=== PATIENT | female | born 1960 | race Caucasian/White ===

== ENCOUNTER 2023-11-13 17:08 | Emergency (ER) | payer OTHER, SELFPAY ==
[2023-11-13 17:20] VITALS: BP 137/81; PULSE 63; RESP 20; TEMP 36.6; O2SAT 97; BMI 35.6
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
--- NOTE | 2023-11-13 17:33 | DI.RAD.S_ITS ---
PROCEDURE: XR LUMBAR SPINE MIN 4V INDICATIONS: Pain TECHNIQUE: 5 views of the lumbar spine were acquired, including bilateral oblique views. COMPARISON: [facility], CR, XR THORACIC SPINE 3V, 11/13/2023, 17:41. FINDINGS: Bones: There is an L2 compression deformity seen involving the superior endplate, with 25% loss of height centrally. No posterior displacement of fracture fragments can be seen on this study. 5 nonrib-bearing vertebrae are present. There is grade 1 L4-L5 anterolisthesis. No associated pars defects are seen. No suspicious bony lesions. There is moderate disc space narrowing seen at L4-L5. The disc heights otherwise appear well-preserved. Lower lumbar spine facet arthropathy is seen. Soft tissues: Overlying bowel gas pattern is normal. No suspicious soft tissue calcifications. Cholecystectomy clips are seen. Left-sided pelvic clips are also seen. Oblique images: No pars defects. IMPRESSION: There is an L2 compression deformity seen with 25% loss of height centrally. This is potentially acute. If it would be helpful for clinical management decision making in this patient with this given history, please consider a dedicated lumbar CT for further evaluation. Grade 1 L4-L5 anterolisthesis seen, with associated focal degenerative change. Dictated by: Benitez Irving M.D. on 11/13/2023 at 17:41 Approved by: Benitez Irving M.D. on 11/13/2023 at 17:43
--- NOTE | 2023-11-13 17:40 | DI.RAD.S_ITS ---
PROCEDURE: XR THORACIC SPINE 3V INDICATIONS: Lower thoracic back pain TECHNIQUE: 3 views of the thoracic spine were acquired. COMPARISON: [facility], CR, XR LUMBAR SPINE MIN 4V, 11/13/2023, 17:41. FINDINGS: Bones: No fractures or dislocations. No suspicious bony lesions. 12 pairs of ribs are noted, and appear intact where visualized. Age-appropriate bony degenerative changes are seen. Mild dextroconvex scoliotic curvature is seen. Mildly accentuated thoracic kyphosis can be seen. Soft tissues: No paravertebral stripe thickening. Cholecystectomy clips are seen. IMPRESSION: Thoracic spine plain films within normal limits for age. Dictated by: Benitez Irving M.D. on 11/13/2023 at 17:43 Approved by: Benitez Irving M.D. on 11/13/2023 at 17:44
[2023-11-13] MEDS: CYCLOBENZAPRINE 10 MG TABLET PO (17:50)
[2023-11-13] MEDS: KETOROLAC 30 MG/ML VIAL IM (17:50)
[2023-11-13] MEDS: HYDROCODONE/ACET 5/325 TABLET 1 TAB PO (19:05)
[2023-11-13 19:21] VITALS: BP 135/80; PULSE 60; RESP 18; O2SAT 98
== END 2023-11-13 19:22 | disposition home or self-care (01) ==
PROVIDERS: Emergency Provider Physician Assistant
DX: S32.020A Wedge compression fracture of second lumbar vertebra, initial encounter for closed fracture (principal); M54.50 Low back pain, unspecified; M54.6 Pain in thoracic spine; X58.XXXA Exposure to other specified factors, initial encounter
CPT/HCPCS: 72072; 72110; 96372; 99283; J1885

== ENCOUNTER → 2023-12-23 08:01 | Outpatient (CLI) | payer OTHER, SELFPAY ==
--- NOTE | 2023-12-23 | DI.MRI.S_ITS ---
PROCEDURE: MR LUMBAR SPINE WO CON INDICATIONS: Wedge compression fracture of second lumbar vertebra, initia TECHNIQUE: Noncontrast sagittal T1 spin echo and T2 fast echo, sagittal STIR, and T2 fast spin echo through the lumbar spine. In cases with scoliosis, additional coronal T2 fast spin echo may be performed. COMPARISON: None. FINDINGS: Image quality: Excellent. Alignment and Curvature: There is altered bony alignment related to the L2 compression fracture. Mild grade 1 anterolisthesis of L4 on L5. Bone Marrow and discs: There is an acute compression fracture involving the L2 vertebral body near the superior endplate with increased T2/stir signal compatible with bony edema. There is [id number] disc desiccation at L1-L2, L3-L4, L4-L5 and L5-S1. Moderate disc height loss at L4-L5. Spinal Cord: Conus medullaris terminates at the L1 level. Visualized cord demonstrates normal signal and size. Paraspinous Soft Tissues: No paravertebral masses. Partially visualized left renal cyst. T12-L1: Normal appearance. L1-L2: Disc bulge related to the superior endplate L2 vertebral body fracture indenting the ventral thecal sac and resulting in moderate central canal stenosis, without significant neural foraminal stenosis. L2-L3: Normal appearance. L3-L4: Normal appearance. L4-L5: Moderate disc bulge and ligamentum flavum thickening and facet arthropathy resulting in moderate central canal stenosis without significant neural foraminal stenosis. L5-S1: Normal appearance. IMPRESSION: 1. Moderate central canal stenosis at L1-L2 secondary to the acute compression fracture of L2 involving the superior endplate. 2. Moderate central canal stenosis at L4-L5 secondary to disc bulge and mild anterolisthesis of L4 on L5. Dictated by: Memo Woodall M.D. on 12/23/2023 at 12:55 Approved by: Memo Woodall M.D. on 12/23/2023 at 13:01
== END ==
PROVIDERS: PCP Family Medicine; Referring Provider Orthopaedic Surgery Orthopaedic Surgery of the Spine; Visit Provider Orthopaedic Surgery Orthopaedic Surgery of the Spine
DX: S32.020A Wedge compression fracture of second lumbar vertebra, initial encounter for closed fracture (principal); M48.061 Spinal stenosis, lumbar region without neurogenic claudication; M43.16 Spondylolisthesis, lumbar region; M51.369 Other intervertebral disc degeneration, lumbar region without mention of lumbar back pain or lower extremity pain
CPT/HCPCS: 72148

== ENCOUNTER → 2024-07-20 11:13 | Outpatient (CLI) | payer OTHER, SELFPAY ==
--- NOTE | 2024-07-20 11:14 | DI.MRI.S_ITS ---
PROCEDURE: MR LUMBAR SPINE WO CON INDICATIONS: lumbar pain,spondyliolisthesis TECHNIQUE: Noncontrast sagittal T1 spin echo and T2 fast echo, sagittal STIR, and T2 fast spin echo through the lumbar spine. In cases with scoliosis, additional coronal T2 fast spin echo may be performed. COMPARISON: [facility], MR, MR LUMBAR SPINE WO CON, 12/23/2023, 8:26. FINDINGS: Image quality: Excellent. Alignment and Curvature: There is more prominent L4 anterolisthesis measuring 5.7 mm. Bone Marrow: More prominent, moderate compression deformity of the L2 vertebral body, with increased AP diameter. There is retropulsion of osseous fragment of approximately 6 mm, with associated disc bulge. This is stable in extent compared to prior study. There is some persistent bone marrow edema along the superior endplate at L2. No new focal osseous lesion seen. Spinal Cord: Conus medullaris terminates at the L1 level. Visualized cord demonstrates normal signal and size. Paraspinous Soft Tissues: No paravertebral masses. T12-L1: Normal appearance. L1-L2: There is stable appearance of mild to moderate central spinal stenosis secondary to the retropulsion. There is also mild bilateral facet arthropathy and ligamentum flavum thickening. There is mild right lateral recess stenosis, without significant foraminal stenosis seen. L2-L3: No significant spinal stenosis seen. L3-L4: Mild bilateral ligamentum flavum thickening and facet arthropathy, without significant spinal stenosis. L4-L5: There is disc bulge as well as bilateral facet arthropathy and ligamentum flavum thickening. There is moderate central spinal stenosis as well as mild to moderate bilateral lateral recess stenosis, without significant foraminal stenosis seen. L5-S1: Mild facet arthropathy, without spinal stenosis seen. IMPRESSION: 1. There is more prominent, moderate compression deformity of the L2 vertebral body. There is persistent bone marrow edema at this level, suggestive of persistent active osseous remodeling. 2. Stable degree of retropulsion at this level, with associated mild right lateral spinal stenosis and mild to moderate central spinal stenosis at L1-L2. 3. More prominent L4 anterolisthesis, with degenerative changes at this level with moderate central spinal stenosis. No definite disc extrusion seen. Dictated by: Anthony Maldonado M.D. on 07/20/2024 at 14:58 Approved by: Anthony Maldonado M.D. on 07/20/2024 at 15:05
== END ==
PROVIDERS: PCP Family Medicine; Referring Provider Physician Assistant; Visit Provider Physician Assistant
DX: M47.816 Spondylosis without myelopathy or radiculopathy, lumbar region (principal); M54.50 Low back pain, unspecified; M43.16 Spondylolisthesis, lumbar region; M70.60 Trochanteric bursitis, unspecified hip; M48.061 Spinal stenosis, lumbar region without neurogenic claudication; S32.020G Wedge compression fracture of second lumbar vertebra, subsequent encounter for fracture with delayed healing
CPT/HCPCS: 72148

== ENCOUNTER 2024-12-24 18:28 | Observation (INO) | payer OTHER, SELFPAY ==
[2024-12-24 18:38] VITALS: BP 141/69; PULSE 76; RESP 16; TEMP 36.4; O2SAT 97; BMI 34.1
--- NOTE | 2024-12-24 18:41 | DI.RAD.S_ITS ---
PROCEDURE: XR CHEST 1V
--- NOTE | 2024-12-24 18:49 | EKG_ITS ---
[facility]
[2024-12-24] MEDS: MORPHINE 4 MG/ML INJ IV (18:50)
[2024-12-24] MEDS: ONDANSETRON 4 MG/2 ML INJ IV (18:50)
--- NOTE | 2024-12-24 18:52 | ED_ITS ---
HPI - Back Pain/Injury
--- NOTE | 2024-12-24 18:52 | ED.BACK ---
HPI - Back Pain/Injury General Chief Complaint: Back Pain/Injury Stated Complaint: pain on back right side, hurts to take a breathe Time Seen by Provider: 12/24/24 18:36 Source: patient History of Present Illness HPI Narrative: 64-year-old female who status post L4-L5 spinal fusion done at [facility] approximately 5 weeks ago presents with sudden right upper scapula pain that started around midnight and wraps around her right shoulder and right chest area. She says it the pain increases with deeper breaths. She denies any chest pain or other symptoms. No saddle anesthesia or bowel or bladder incontinence Related Data Home Medications ?Medication ?Instructions ?Recorded ?Confirmed celecoxib 100 mg capsule 100 mg PO BID 12/24/24 12/24/24 docusate sodium 100 mg capsule 100 mg PO BID 12/24/24 12/24/24 tramadol 50 mg tablet 50 - 100 mg PO Q8H PRN moderate 12/24/24 12/24/24 pain Allergies Allergy/AdvReac Type Severity Reaction Status Date / Time No Known Drug Allergies Allergy Verified 12/24/24 18:38 Review of Systems Review of Systems ROS Unobtainable: All systems reviewed & are unremarkable except as noted in HPI and below Patient History Social History household members: spouse and children Smoking Status: Never smoker alcohol intake: current Exam Narrative Exam Narrative: General: Patient appears to be in no acute distress, acting appropriately Head: normocephalic, atraumatic, HEENT: Pupils equal round reactive, eyes tracking well, neck supple, no JVD Heart: regular rate and rhythm, no murmurs, rubs, or gallops heard Lungs: clear to auscultation, no adventitious sounds Abdomen: soft , nontender, nondistended, positive bowel sounds Neurological: no focal neurological signs, moving all extremities well, alert and oriented x3, Psych: good judgment ,good insight, mood is normal. right scapular region: pain with palpation Initial Vital Signs Initial Vital Signs: Vital Signs Temperature 97.6 F 12/24/24 18:38 Pulse Rate 76 12/24/24 18:38 Respiratory Rate 16 12/24/24 18:38 Blood Pressure 141/69 H 12/24/24 18:38 Pulse Oximetry 97 12/24/24 18:38 Oxygen Delivery Method Room Air 12/24/24 18:38 Course Orders Ordered: ED Orders 12/25/24 04:18 Basic Metabolic Panel Routine Complete Blood Count AUTO DIFF Routine Magnesium Routine Acetaminophen (Acetaminophen 325 Mg Tablet) 650 mg PO Q6H PRN PRN Reason: Fever/Mild Pain (1-3) Last Admin: 12/25/24 05:27 Dose: 650 mg Documented By: MARCO ANTONIO Admin: 12/24/24 23:43 Dose: 650 mg Documented By: MARCO ANTONIO Heparin Sodium/Dextrose (Heparin Drip) 25,000 unit in 500 mls @ 38.864 mls/hr IV CONT SKYLAR; Protocol Last Titration: 12/25/24 06:03 Dose: 0 units/kg/hr, 0 mls/hr Documented By: MARCO ANTONIO Co-signed By: KEE Titration: 12/24/24 21:53 Dose: 18.02 units/kg/hr, 38.9 mls/hr Documented By: SO Co-signed By: CORRINA Admin: 12/24/24 21:37 Dose: 18 units/kg/hr, 38.864 mls/hr Documented By: SO Co-signed By: ALYSSA Naloxone HCl (Naloxone 0.4 Mg/Ml Vial) 0.2 mg IV Q2MIN PRN PRN Reason: Opiate Reversal Ondansetron HCl (Ondansetron 4 Mg/2 Ml Inj) 4 mg IV Q8HR PRN PRN Reason: Nausea And Vomiting Discontinued Medications Acetaminophen (Acetaminophen 325 Mg Tablet) 650 mg PO Q6H PRN PRN Reason: Fever/Mild Pain (1-3) Aspirin (Aspirin 81 Mg Chew Tab) 324 mg PO NOW ONE Stop: 12/24/24 18:42 Last Admin: 12/24/24 18:46 Dose: Not Given Documented By: ABBI Heparin Sodium (Porcine) (Heparin 5,000 Unit/Ml Vial) 8,500 unit 80 unit/kg (8500 unit) IV NOW ONE Stop: 12/24/24 21:08 Last Admin: 12/24/24 21:33 Dose: 8,500 unit Documented By: SO Morphine Sulfate (Morphine 4 Mg/Ml Inj) 4 mg IV NOW ONE Stop: 12/24/24 18:42 Last Admin: 12/24/24 18:50 Dose: 4 mg Documented By: CHONG Ondansetron HCl (Ondansetron 4 Mg/2 Ml Inj) 4 mg IV NOW ONE Stop: 12/24/24 18:42 Last Admin: 12/24/24 18:50 Dose: 4 mg Documented By: CB Consultations Consultation #1: Dr. Butler hospitalist accepted patient for admission for acute pulmonary emboli involving the segmental pulmonary arteries of the right lower lobe Time: 21:35 Vital Signs Vital signs: Vital Signs - 8 hr 12/24/24 18:38 Temperature 97.6 F Pulse Rate 76 Respiratory Rate 16 Blood Pressure 141/69 H Pulse Oximetry 97 Oxygen Delivery Method Room Air MDM - Back Pain/Injury Lab Data 12/25/24 04:18 12/25/24 04:18 Labs: Lab Results 12/24/24 Range/Units 19:18 WBC 9.1 (4.5-11.0) X10^3/uL RBC 4.59 (4.0-5.2) X10^6/uL Hgb 12.8 (12.0-16.0) g/dL Hct 38.4 (36-46) % MCV 83.7 (80-100) fL MCH 28.0 (26-34) PG MCHC 33.4 (30-36) % RDW 14.1 (11.6-14.8) % Plt Count 330 (150-400) X10^3/uL Neut % (Auto) 69.4 (50-75) % Lymph % (Auto) 20.9 L (25-40) % [place] % (Auto) 7.8 (3-14) % Eos % (Auto) 1.2 L (2-4) % Baso % (Auto) 0.7 (0-2) % Neut # (Auto) 6300 (2120-0707) /uL Lymph # (Auto) 1900 (5161-4040) /uL [place] # (Auto) 700 (0-900) /uL Eos # (Auto) 100 (0-450) /uL Baso # (Auto) 100 (0-100) /uL PT 13.4 H (9.4-12.5) SECONDS INR 1.2 (0.9-1.3) APTT 28 (25.1-36.5) SECONDS D-Dimer 3569 H (<500) ng/ml Sodium 138 (137-145) mmol/L Potassium 3.8 (3.4-5.1) mmol/L Chloride 103 (98-107) mmol/L Carbon Dioxide 24 (22-32) mmol/L BUN 13 (7-17) mg/dL Creatinine 0.71 (0.52-1.04) mg/dL Estimated GFR > 60 (>60) mL/min BUN/Creatinine Ratio 18.3 (6-22) Glucose 141 H (70-99) mg/dL Calcium 9.1 (8.4-10.2) mg/dL Magnesium 1.9 (1.6-2.3) mg/dL Total Bilirubin 0.7 (0.2-1.3) mg/dL AST 24 (14-36) IU/L ALT 19 (<35) IU/L Alkaline Phosphatase 95 (38-126) U/L Total Creatine Kinase 37 (30-135) U/L Troponin I < 0.012 (0.01-0.034) ng/mL NT-Pro-B Natriuret Pep 60 (<125) pg/mL Total Protein 7.6 (6.3-8.2) g/dL Albumin 4.3 (3.5-5.0) g/dL Globulin 3.3 (1.7-4.1) g/dL Albumin/Globulin Ratio 1.3 (1.0-2.8) Lipase 81 (23-300) U/L Imaging Data CT scan - chest: Radiologist's Impression: Acute pulmonary emboli involving the segmental pulmonary arteries of the right lower lobe. No evidence for acute right-sided heart strain. No findings to suggest pulmonary infarction. Moderate bibasilar atelectasis and diminished lung volumes. No dense consolidation seen. ECG Data Interpretation: EKG shows normal axis, normal sinus rhythm, 74 beats per minute normal AL intervals no STT wave changes. No previous EKG to compare with. MDM Narrative Medical decision making narrative: 64-year-old female status post L4-L5 spinal fusion 5 weeks ago presents with sudden right-sided scapular pain that wraps around the right side of her chest that started overnight. Patient found to have acute pulmonary emboli involving the segmental pulmonary arteries in the right lower lobe. Heparin started for the patient and patient will be admitted to the hospitalist service and later transitioned to oral anticoagulant. Currently stable. Discharge Plan Departure Patient Disposition: Admitted As Inpatient Clinical Impression: Pulmonary embolism Qualifiers: Pulmonary embolism type: multiple subsegmental (without acute cor pulmonale) Qualified Code(s): I26.94 - Multiple subsegmental thrombotic pulmonary emboli without acute cor pulmonale Admit Date/Time: 12/24/24 21:46 Admit Provider: Smooth Butler
[2024-12-24 19:22] LABS: Add Manual Diff / Slide Review NO; Hematocrit 38.4 % (36-46); Hemoglobin 12.8 g/dL (12.0-16.0); Lymphocytes Absolute Auto 1900 /uL (1100-4500); Mean Corpuscular HGB Conc 33.4 % (30-36); Mean Corpuscular Hemoglobin 28.0 PG (26-34); Mean Corpuscular Volume 83.7 fL (80-100); Platelet Count 330 X10^3/uL (150-400)
[2024-12-24 19:32] LABS: INR 1.2 (0.9-1.3); Prothrombin Time 13.4 SECONDS (9.4-12.5)
[2024-12-24 19:35] LABS: PTT Partial Thromboplastin Tim 28 SECONDS (25.1-36.5)
[2024-12-24 19:36] LABS: Alanine Aminotransferase 19 IU/L (<35); Albumin 4.3 g/dL (3.5-5.0); Albumin Globulin Ratio 1.3 (1.0-2.8); Alkaline Phosphatase 95 U/L (38-126); Blood Urea Nitrogen 13 mg/dL (7-17); Calcium 9.1 mg/dL (8.4-10.2); Carbon Dioxide 24 mmol/L (22-32); Chloride 103 mmol/L (98-107); Creatine Kinase 37 U/L (30-135); Estimated Glomerular Filt Rate > 60 mL/min (>60); Globulin 3.3 g/dL (1.7-4.1); Glucose 141 mg/dL (70-99); HEMOLYSIS < 15 (0-50); Lipase 81 U/L (23-300); Magnesium 1.9 mg/dL (1.6-2.3); Potassium 3.8 mmol/L (3.4-5.1); Sodium 138 mmol/L (137-145); Total Protein 7.6 g/dL (6.3-8.2)
[2024-12-24 19:47] LABS: NT-proBNP (BNP-Adult 18+) 60 pg/mL (<125); Troponin I < 0.012 ng/mL (0.01-0.034)
--- NOTE | 2024-12-24 20:01 | DI.CT.S_ITS ---
PROCEDURE: CT ANGIO CHEST PE PROTOCOL
[2024-12-24] MEDS: HEPARIN 5,000 UNIT/ML VIAL 8500 UNIT IV (21:33)
[2024-12-24] MEDS: HEPARIN DRIP 25,000 UNIT/500 ML IV.SOLN 38.864 UNIT IV (21:37)
--- NOTE | 2024-12-24 21:38 | P.HP_ITS ---
History of Present Illness
--- NOTE | 2024-12-24 21:38 | PM.HP.1 ---
History of Present Illness History of Present Illness Chief complaint: pain on back right side, hurts to take a breathe Narrative: 64F with PMH of chronic LBP who is s/p 5 weeks from L4-[address] spinal fusion in [facility] and reportedly not discharged on VTE prophylaxis now presents with <1 day of upper scapular pain R>L worse with inspiration but without chest pain, fever/chills/sweats, cough, GI symptoms, or neurological symptoms. Labs were unremarkable except for markedly elevated D-dimer. CTA showed PE. [facility] Social History household members: spouse and children Smoking Status: Never smoker alcohol intake: current Meds Home Medications and Allergies Home Medications ?Medication ?Instructions ?Recorded ?Confirmed ?Type celecoxib 100 mg capsule 100 mg PO BID 12/24/24 12/24/24 History docusate sodium 100 mg capsule 100 mg PO BID 12/24/24 12/24/24 History tramadol 50 mg tablet 50 - 100 mg PO Q8H PRN moderate 12/24/24 12/24/24 History pain Allergies Allergy/AdvReac Type Severity Reaction Status Date / Time No Known Drug Allergies Allergy Verified 12/24/24 18:38 Review of Systems Review of Systems Narrative: As per HPI. Rest of 10-system review negative. Exam Vital Signs (past 8 hours): - 12/24/24 18:38 Temperature 97.6 F Pulse Rate 76 Respiratory Rate 16 Blood Pressure 141/69 H Pulse Oximetry 97 Oxygen Delivery Method Room Air Oxygen Delivery Method Room Air Narrative Exam Narrative: Patient was evaluated entirely through 2-way audio/video telemedicine with RN assistance in exam. Physician was not present at beside in person at any time for this evaluation. Consent for telemedicine obtained from patient. Const Other: awake, alert, no acute distress Eyes Other: anicteric Neck Other: supple Resp Other: CTA-B Cardio Other: RRR GI Other: S/+BS/NT Skin Other: no rashes Extrem Other: no LE edema Psych Other: normal mood Objective Imaging CT scan - chest: Radiologist's impression: CTA Chest Acute pulmonary emboli involving the segmental pulmonary arteries of the right lower lobe. No evidence for acute right-sided heart strain. No findings to suggest pulmonary infarction. Moderate bibasilar atelectasis and diminished lung volumes. No dense consolidation seen. Labs 12/24/24 19:18 12/24/24 19:18 Labs: Laboratory Results - last 24 hr 12/24/24 19:18 WBC 9.1 RBC 4.59 Hgb 12.8 Hct 38.4 MCV 83.7 MCH 28.0 MCHC 33.4 RDW 14.1 Plt Count 330 Neut % (Auto) 69.4 Lymph % (Auto) 20.9 L [place] % (Auto) 7.8 Eos % (Auto) 1.2 L Baso % (Auto) 0.7 Neut # (Auto) 6300 Lymph # (Auto) 1900 [place] # (Auto) 700 Eos # (Auto) 100 Baso # (Auto) 100 PT 13.4 H INR 1.2 APTT 28 D-Dimer 3569 H Sodium 138 Potassium 3.8 Chloride 103 Carbon Dioxide 24 BUN 13 Creatinine 0.71 Estimated GFR > 60 BUN/Creatinine Ratio 18.3 Glucose 141 H Calcium 9.1 Magnesium 1.9 Total Bilirubin 0.7 AST 24 ALT 19 Alkaline Phosphatase 95 Total Creatine Kinase 37 Troponin I < 0.012 NT-Pro-B Natriuret Pep 60 Total Protein 7.6 Albumin 4.3 Globulin 3.3 Albumin/Globulin Ratio 1.3 Lipase 81 Assessment & Plan Assessment and plan (1) Pulmonary embolism: Qualifiers: Pulmonary embolism type: multiple subsegmental (without acute cor pulmonale) Qualified Code(s): I26.94 - Multiple subsegmental thrombotic pulmonary emboli without acute cor pulmonale Status: Acute Assessment & Plan narrative: 64F s/p L4-5 fusion POD [address] [facility] 1. Acute RLL subsegemental PE without R heart strain with bibasilar atelectasis s/p L-spine surgery 5 weeks ago, POA 2. Obesity, BMI 34 Plan: 1. Admit to observation, telemetry 2. Heparin drip 3. Convert to oral agent tomorrow 4. If breathing stable and pain controlled, possible DC tomorrow Code: Learning Specialist-Based Coding :: [TOTAL MINUTES] spent with patient and on the chart (including review of chart, obtaining history, exam, reviewing outside data, placing orders, documenting exam and treatment plan, and counseling patient) on [DATE].
[2024-12-24 22:17] VITALS: BP 97/70; PULSE 66; RESP 22; O2SAT 97
[2024-12-24 23:04] VITALS: BP 117/64; PULSE 71; RESP 18; TEMP 37.3; O2SAT 93
[2024-12-24 23:10] VITALS: BMI 34.1
[2024-12-24] MEDS: ACETAMINOPHEN 325 MG TABLET 650 MG PO (23:43)
[2024-12-25 05:23] LABS: Add Manual Diff / Slide Review NO; Hematocrit 34.7 % (36-46); Hemoglobin 11.9 g/dL (12.0-16.0); Lymphocytes Absolute Auto 2400 /uL (1100-4500); Mean Corpuscular HGB Conc 34.3 % (30-36); Mean Corpuscular Hemoglobin 28.5 PG (26-34); Mean Corpuscular Volume 83.0 fL (80-100); Platelet Count 308 X10^3/uL (150-400)
[2024-12-25] MEDS: ACETAMINOPHEN 325 MG TABLET 650 MG PO ×3 (05:27→19:58)
[2024-12-25 05:28] LABS: Blood Urea Nitrogen 12 mg/dL (7-17); Calcium 9.2 mg/dL (8.4-10.2); Carbon Dioxide 23 mmol/L (22-32); Chloride 102 mmol/L (98-107); Estimated Glomerular Filt Rate > 60 mL/min (>60); Glucose 149 mg/dL (70-99); HEMOLYSIS < 15 (0-50); Magnesium 2.1 mg/dL (1.6-2.3); Potassium 3.8 mmol/L (3.4-5.1); Sodium 137 mmol/L (137-145)
[2024-12-25 05:54] LABS: PTT Partial Thromboplastin Tim 239 SECONDS (25.1-36.5)
--- NOTE | 2024-12-25 07:35 | PM.PN.1 ---
Subjective Subjective Interval history: Summary: 64F with PMH of chronic LBP who is s/p 5 weeks from L4-5 spinal fusion in [facility] and reportedly not discharged on VTE prophylaxis now presents with <1 day of upper scapular pain R>L worse with inspiration but without chest pain, fever/chills/sweats, cough, GI symptoms, or neurological symptoms. Labs were unremarkable except for markedly elevated D-dimer. CTA showed PE. S: She was feeling okay today. She was still having a fair amount of right posterior pleuritic chest pain but denies any dyspnea. She underwent L3-L4 fusion per Dr. Richardson at [facility] on November 15. O: VSS. NAD, alert and oriented. Fluent speech. Lungs are clear, normal rate and effort. Heart is regular, no murmur gallop or rub. Abdomen is soft, non distended. Extremities are free of edema. IMAGING: CT scan - chest: Radiologist's impression: CTA Chest Acute pulmonary emboli involving the segmental pulmonary arteries of the right lower lobe. No evidence for acute right-sided heart strain. No findings to suggest pulmonary infarction. Moderate bibasilar atelectasis and diminished lung volumes. No dense consolidation seen. A/P: 1. Acute RLL subsegemental PE without R heart strain with bibasilar atelectasis s/p L-spine surgery 5 weeks ago, POA 2. Obesity Class 1, BMI 34 PLAN: 1. Continue heparin drip and monitor pain control. 2. Convert to oral agent tomorrow 3. Possible DC tomorrow 4. Status post recent L3-L4 fusion for lumbar spinal stenosis and neurogenic claudication. Code: Full Exam Vital Signs (past 8 hours): Oxygen Delivery Method Room Air Oxygen Flow Rate 0 Objective Labs 12/25/24 04:18 12/25/24 04:18 Labs: Laboratory Results - last 24 hr 12/24/24 12/25/24 19:18 04:18 WBC 9.1 9.2 RBC 4.59 4.18 Hgb 12.8 11.9 L Hct 38.4 34.7 L MCV 83.7 83.0 MCH 28.0 28.5 MCHC 33.4 34.3 RDW 14.1 14.1 Plt Count 330 308 Neut % (Auto) 69.4 63.1 Lymph % (Auto) 20.9 L 26.2 [place] % (Auto) 7.8 9.6 Eos % (Auto) 1.2 L 0.5 L Baso % (Auto) 0.7 0.6 Neut # (Auto) 6300 5800 Lymph # (Auto) 1900 2400 [place] # (Auto) 700 900 Eos # (Auto) 100 0 Baso # (Auto) 100 100 PT 13.4 H INR 1.2 APTT 28 239 H* D D-Dimer 3569 H Sodium 138 137 Potassium 3.8 3.8 Chloride 103 102 Carbon Dioxide 24 23 BUN 13 12 Creatinine 0.71 0.67 Estimated GFR > 60 > 60 BUN/Creatinine Ratio 18.3 17.9 Glucose 141 H 149 H Calcium 9.1 9.2 Magnesium 1.9 2.1 Total Bilirubin 0.7 AST 24 ALT 19 Alkaline Phosphatase 95 Total Creatine Kinase 37 Troponin I < 0.012 NT-Pro-B Natriuret Pep 60 Total Protein 7.6 Albumin 4.3 Globulin 3.3 Albumin/Globulin Ratio 1.3 Lipase 81 PFSH Social History household members: spouse and children Smoking Status: Never smoker alcohol intake: current Assessment & Plan Time-Based Coding :: [TOTAL MINUTES] spent with patient and on the chart (including review of chart, obtaining history, exam, reviewing outside data, placing orders, documenting exam and treatment plan, and counseling patient) on [DATE]. Quality VTE Deep Vein Thrombosis/Pulmonary Embolism Present on Admission: No
--- NOTE | 2024-12-25 10:56 | PC.NURSE ---
Addendum entered by Franchesca Landa RN 12/25/24 13:28: Patients heparin drip stopped, patient starting on eloquis now. She will have us on her bilateral lower extremities and see how she feels later. Original Note: Patient is tolerating her heparin drip. Setting is at 14u/kg/hr. Up to bathroom. Just gave patient some tylenol for complaints of 6/10 pain to r.upper and lower chest. She states that tylenol has been helpful. Will monitor patients pain.
[2024-12-25 12:00] VITALS: BP 113/89; PULSE 69; RESP 18; TEMP 36.1; O2SAT 94
--- NOTE | 2024-12-25 13:07 | DI.US.S_ITS ---
PROCEDURE: US PERIPH VENOUS LOW EXTREM BI
--- NOTE | 2024-12-25 13:51 | CM.DANOTE ---
DCP Assessment note pt is a 64yo F admitted for post OP PE/DVT. POD9 lumbar fusion at [facility]. CHOIRMASTER reviewed EMR per provider, anticipate home later today after ultrasound of legs. lives with spouse indep in [place]. agreeable to dc home if dc today. denies any DCP/CM needs at this time. P: dc home today vs tomorrow with spouse support and OP f/u. no further needs at this time. will continue to follow in case any should arise JULIA Leon Discharge Planning/Care Management Advanced directive, confirm from FAMILY Start: 12/24/24 23:24 Freq: Q24H Status: Active Protocol: Document 12/24/24 23:33 AKT (Rec: 12/24/24 23:34 AKT [id number]) Advance Directive, confirm on record Time 23:34 Person contacted to bring in Copy received No CM Discharge Assessment Start: 12/24/24 21:59 Freq: Status: Active Protocol: Document 12/25/24 13:50 SL (Rec: 12/25/24 13:51 SL [id number]) Discharge Planning Assessment Assigned Discharge JULIA Crocker Racebook Writer Provider Misael Rothman Insurance DPOA/Assigned Servando, spouse Designee Name Contact Information [phone] Advance Directives? Yes Advance Directives No on File History Provided By Patient,Significant Other Prior Living House Arrangements Household Members spouse,children Type of Drives own vehicle transporation used prior to admit Independent with ADL Yes 's Is patient alert and Yes oriented? Discharge Plan Home Review Status In Process Please Provide Date 12/25/24 Initial DC Assessment Was Performed Next Review Type Continued Stay Review
[2024-12-25] MEDS: APIXABAN 5 MG TABLET 10 MG PO ×2 (14:05→20:00)
[2024-12-25 20:35] VITALS: BP 120/69; PULSE 71; RESP 18; TEMP 36.8; O2SAT 94
[2024-12-26 08:30] VITALS: O2SAT 95
--- NOTE | 2024-12-26 08:54 | P.DS_ITS ---
History of Present Illness
--- NOTE | 2024-12-26 08:54 | PM.DS.1 ---
History of Present Illness History of Present Illness Chief complaint: pain on back right side, hurts to take a breathe Narrative: From H&P: 64F with PMH of chronic LBP who is s/p 5 weeks from L4-5 spinal fusion in [facility] and reportedly not discharged on VTE prophylaxis now presents with <1 day of upper scapular pain R>L worse with inspiration but without chest pain, fever/chills/sweats, cough, GI symptoms, or neurological symptoms. Labs were unremarkable except for markedly elevated D-dimer. CTA showed PE. Discharge Providers Provider Date of admission: 12/24/24 21:46 Discharge Date: 12/26/24 Primary care physician: Misael Rothman MD Consults: None. Discharge provider: Chaitanya Buckner MD Summary Hospital Course Discharge Diagnosis: 1. Acute RLL subsegemental PE without R heart strain with bibasilar atelectasis s/p L-spine surgery 5 weeks ago, POA 2. Obesity Class 1, BMI 34 Hospital Course: She was admitted and treated with unfractionated heparin drip and had symptoms only of pleuritic right-sided chest pain. These improved overnight she was started on apixaban 10 b.i.d.. She was discussed with her spine surgeon, Dr. Richardson, and he was made aware of her pulmonary embolism and DOAC plan. Leg ultrasounds were negative for residual DVT. She was improved and stable for discharge on December 26. Anticipate 3 months of anticoagulation. She was asked to follow up with PCP next week. [N], the patient has documentation of a left ventricle ejection fracture less than or equal to 40%, or moderately or severely reduced left ventricle systolic function. [N], the patient has a history of heart transplant or left ventricular assist device (LVAD). [N], the patient was prescribed an EDWIGE inhibitor at discharge or is already being taken. The patient was not prescribed an EDWIGE-inhibitor because of the following exception: NA. [N], the patient was prescribed Metoprolol succinate, bisoprolol, or carvedilol at discharge. The patient was not prescribed Metoprolol succinate, bisoprolol, or carvedilol at discharge because of the following exception: NA. Status at Discharge Cognitive/behavioral status at discharge: oriented Functional status at discharge: independent ambulation Overall status at discharge: patient is back to baseline Time Spent with Patient Time spent: Greater than 30 minutes Exam Vital Signs (past 8 hours): Oxygen Delivery Method Room Air Oxygen Flow Rate 0 Narrative Exam Narrative: NAD, alert and oriented. Fluent speech. Lungs are clear, normal rate and effort. Heart is regular, no murmur gallop or rub. Abdomen is soft, non distended. Extremities are free of edema. Objective ECG Impression: Intervals [place] Rate: 74 P: 29 IN: 160 QRS: -2 QRSD: 82 T: 8 QT: 380 QTc: 421 Interpretive Statements Normal sinus rhythm Minimal voltage criteria for LVH, may be normal variant ( R in aVL ) Imaging Multiple studies: : Radiologist's impression: CT scan - chest: Radiologist's impression: CTA Chest Acute pulmonary emboli involving the segmental pulmonary arteries of the right lower lobe. No evidence for acute right-sided heart strain. No findings to suggest pulmonary infarction. Moderate bibasilar atelectasis and diminished lung volumes. No dense consolidation seen. Labs 12/25/24 04:18 12/25/24 04:18 PFSH Social History household members: spouse and children Smoking Status: Never smoker alcohol intake: current Discharge Assessment & Plan Assessment and Plan Assessment: 1. Acute RLL subsegemental PE without R heart strain with bibasilar atelectasis s/p L-spine surgery 5 weeks ago, POA 2. Obesity Class 1, BMI 34 Plan of Treatment: Will continue Apixaban. Close FU with PCP. Spine surgeon was notified regarding this acute medical illness. Discharge Plan Discharge Plan Patient Disposition: Home Provider Discharge Comment: Stable for discharge home. Discharge orders & Medications Prescriptions: New Eliquis DVT-PE Treat 30D Start 5 mg (74 tabs) tablets,dose pack 5 mg PO BID Qty: 72 2RF Rx Instructions: 10 mg PO BID for 6 days (12 doses), then 5 mg PO BID thereafter (3 months ) Continued tramadol 50 mg tablet 50 - 100 mg PO Q8H PRN (Reason: moderate pain) docusate sodium 100 mg capsule 100 mg PO BID celecoxib 100 mg capsule 100 mg PO BID Follow up/Referrals: Misael Rothman MD [Primary Care Provider, Family Practice] Diet/Activity/Treatments Diet: Regular Activity: As tolerated. Visit Report/Discharge Packet Instructions: DI for Pulmonary Embolism, How to Prevent Falls Stand Alone Forms: Patient Portal/API Discharge Data Primary Care Provider: Misael Rothman Attending Provider: Smooth Butler Admit Date/Time: 12/24/24 21:46 Quality VTE Deep Vein Thrombosis/Pulmonary Embolism Present on Admission: No
[2024-12-26] MEDS: APIXABAN 5 MG TABLET 10 MG PO (09:51)
--- NOTE | 2024-12-26 10:48 | CM.DPNOTE ---
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 no identified barriers to safe dc home. will continue to follow as needed JULIA Leon
--- NOTE | 2024-12-26 12:37 | PC.NURSE ---
Discharge: Pt feels ready to discharge. Seen by MD and given discharge instructions. She is taking her diet and no changes in B&B. Discussed bleeding potential, watch urine and stool for blood. Stool may appear black. Will take firm pressure to stop bleeding if she is nicked by a knife, Takes a fall, anything which may cause bleeding. If she see redness in a leg or swelling she needs to notify the MD, elequis may not prevent all clots. Reviewed PE information and falls. Reports understanding. Questions answered. Rx has been esent and they know to pick it up at their pharmacy. Pt d/c to home via auto with spouse.
== END 2024-12-26 10:45 | disposition home or self-care (01) ==
LOC: ED 18:36 → AC 22:33
PROVIDERS: Admitting Provider Internal Medicine; Emergency Provider Family Medicine; PCP Family Medicine; Referring Provider Family Medicine; Visit Provider Internal Medicine
DX: I26.99 Other pulmonary embolism without acute cor pulmonale (principal); J98.11 Atelectasis; Z98.1 Arthrodesis status; E66.811 Obesity, class 1; Z68.34 Body mass index [BMI] 34.0-34.9, adult
CPT/HCPCS: 36415; 71045; 71275; 80048; 80053; 82550; 83690; 83735; 83880; 84484; 85025; 85379; 85610; 85730; 93005; 93970; 96365; 96366; 96375; 99284; G0378; J1644; J2272; J2405; Q9967